=== PATIENT | male | born 1960 | race African-American/Black ===

== ENCOUNTER 2022-02-18 19:48 | Inpatient (IN) | payer SELFPAY ==
[2022-02-18 20:16] LABS: #Eosinphils 0.3 thou/uL (0.0-0.7); #Lymphocytes 3.4 thou/uL (1.20-3.40); #Monocytes 0.7 thou/uL (0.11-0.59); #Neutrophils 5.5 thou/uL (1.40-6.50); %Basophils 0.5 % (0.0-1.0); %Eosinophils 2.8 % (0.0-10.0); %Lymphocytes 34.1 % (21.0-51.0); %Monocytes 6.9 % (0.0-10.0); %Neutrophils 55.7 % (42.0-75.0); Hemoglobin 16.3 g/dL (14.0-18.0); Mean Corpuscular HGB CONC 32.6 g/dL (32.0-36.0); Mean Corpuscular Hemoglobin 28.7 pg (27.0-31.0); Mean Corpuscular Volume 88.1 fL (78.0-98.0); Mean Platelet Volume 7.9 fL (7.4-10.4); Platelet Count 260 thou/uL (130-400); RBC Distribution Width 14.4 % (11.5-14.5); White Blood Cell (WBC) Count 9.9 thou/uL (4.8-10.8)
[2022-02-18 20:36] LABS: ALT (SGPT) 10 U/L (8-55); AST (SGOT) 18 U/L (5-34); Albumin 4.1 g/dL (3.5-5.0); Alkaline Phosphatase 120 U/L (40-110); Anion Gap 15 mmol/L (10-20); BUN (Urea Nitrogen) 14 mg/dL (8.4-25.7); Bilirubin, Total 0.6 mg/dL (0.2-1.2); Calc. Creatinine Clearance 0 mL/min (70-130); Calcium 9.3 mg/dL (7.8-10.44); Carbon Dioxide 24 mmol/L (22-29); Chloride 104 mmol/L (98-107); Globulin 3.4 g/dL (2.4-3.5); Glucose 88 mg/dL (70-105); Potassium 4.1 mmol/L (3.5-5.1); Protein, Total 7.5 g/dL (6.0-8.3); Sodium 139 mmol/L (136-145)
[2022-02-18] MEDS ORDERED: Labetalol HCl 100 MG/20 ML VIAL ONE (20:37)
[2022-02-18] MEDS ORDERED: Aspirin Chewable 81 MG TAB ONE (21:11)
[2022-02-18] MEDS ORDERED: Acetaminophen 325 MG TAB PO PRN (21:40)
[2022-02-18] MEDS ORDERED: Calcium Carbonate 500 MG ChewTAB PO PRN (21:40)
[2022-02-18] MEDS ORDERED: Ondansetron ODT 4 MG TAB PO PRN (21:40)
[2022-02-18] MEDS ORDERED: Ondansetron PF 4 MG/2 ML Vial IVP PRN (21:40)
[2022-02-18 22:00] LABS: Amphetamine Not Detected (NotDetected); Barbiturates Screen Not Detected (NotDetected); Benzodiazepine Screen Not Detected (NotDetected); Cocaine Metabolite Screen Not Detected (NotDetected); Methadone Not Detected (NotDetected); Methamphetamine Not Detected (NotDetected); Opiate Screen Not Detected (NotDetected); Oxycodone Screen Not Detected (NotDetected); Phencyclidine (PCP) Not Detected (NotDetected); THC/Cannabinoid Screen Not Detected (NotDetected); Tricyclic Screen Not Detected (NotDetected)
[2022-02-18] MEDS ORDERED: hydrALAZINE 20 MG/ML VIAL ONE (22:02)
[2022-02-18 22:15] LABS: Hemoglobin A1c 5.8 % (4.0-6.0)
[2022-02-19 04:38] LABS: ALT (SGPT) 10 U/L (8-55); AST (SGOT) 13 U/L (5-34); Albumin 3.8 g/dL (3.5-5.0); Alkaline Phosphatase 103 U/L (40-110); Anion Gap 13 mmol/L (10-20); BUN (Urea Nitrogen) 11 mg/dL (8.4-25.7); Calc. Creatinine Clearance 101 mL/min (70-130); Carbon Dioxide 25 mmol/L (22-29); Chloride 102 mmol/L (98-107); Globulin 3.3 g/dL (2.4-3.5); Glucose 91 mg/dL (70-105); Protein, Total 7.1 g/dL (6.0-8.3); Sodium 137 mmol/L (136-145)
[2022-02-19 04:55] LABS: #Basophils 0.1 thou/uL (0.0-0.2); #Eosinphils 0.3 thou/uL (0.0-0.7); #Lymphocytes 3.1 thou/uL (1.20-3.40); #Monocytes 0.7 thou/uL (0.11-0.59); #Neutrophils 5.1 thou/uL (1.40-6.50); %Basophils 0.8 % (0.0-1.0); %Eosinophils 3.4 % (0.0-10.0); %Lymphocytes 33.4 % (21.0-51.0); %Monocytes 7.8 % (0.0-10.0); %Neutrophils 54.6 % (42.0-75.0); Hemoglobin 15.1 g/dL (14.0-18.0); Mean Corpuscular HGB CONC 33.2 g/dL (32.0-36.0); Mean Corpuscular Hemoglobin 29.2 pg (27.0-31.0); Mean Corpuscular Volume 87.9 fL (78.0-98.0); Mean Platelet Volume 7.9 fL (7.4-10.4); Platelet Count 261 thou/uL (130-400); RBC Distribution Width 14.4 % (11.5-14.5); Red Blood Cell (RBC) Count 5.17 mill/uL (4.70-6.10); White Blood Cell (WBC) Count 9.4 thou/uL (4.8-10.8)
[2022-02-19] MEDS ORDERED: Enoxaparin Sodium 40 MG/0.4 ML SYRINGE SC SCH (09:00)
[2022-02-19] MEDS: Aspirin 81 mg Enteric Coated Tablet PO SCH (09:12)
[2022-02-19] MEDS ORDERED: Amlodipine 5 MG TAB PO SCH (09:45)
[2022-02-19] MEDS ORDERED: Potassium Chloride 20 MEQ TAB PO SCH ×2 (10:15→16:00)
[2022-02-19] MEDS: hydrALAZINE 20 MG/ML VIAL SLOW IVP PRN ×2 (11:41→23:43)
[2022-02-19 12:08] LABS: SARS-CoV-2 PCR by NAA Not Detected (NotDetected)
[2022-02-19 16:03] LABS: Anion Gap 13 mmol/L (10-20); BUN (Urea Nitrogen) 13 mg/dL (8.4-25.7); Calc. Creatinine Clearance 103 mL/min (70-130); Calcium 9.4 mg/dL (7.8-10.44); Carbon Dioxide 25 mmol/L (22-29); Chloride 104 mmol/L (98-107); Glucose 115 mg/dL (70-105); Magnesium 2.3 mg/dL (1.6-2.6); Potassium 3.6 mmol/L (3.5-5.1); Sodium 138 mmol/L (136-145)
[2022-02-19 16:15] LABS: Phosphorus 1.6 mg/dL (2.3-4.7)
[2022-02-19] MEDS ORDERED: Sodium Phosphate 30 MMOL in Sodium Chloride 0.9% 250 ML 250 ML IVPB SCH (18:00)
[2022-02-19] MEDS: PHOS-NAK 1 PKT PACK PO SCH ×2 (18:32→22:10)
[2022-02-19] MEDS: Atorvastatin Calcium 40 MG TAB PO SCH (19:37)
[2022-02-20 04:49] LABS: Anion Gap 13 mmol/L (10-20); BUN (Urea Nitrogen) 11 mg/dL (8.4-25.7); Calc. Creatinine Clearance 102 mL/min (70-130); Calcium 9.1 mg/dL (7.8-10.44); Carbon Dioxide 24 mmol/L (22-29); Chloride 104 mmol/L (98-107); Glucose 105 mg/dL (70-105); Magnesium 2.1 mg/dL (1.6-2.6); Phosphorus 2.4 mg/dL (2.3-4.7); Potassium 3.4 mmol/L (3.5-5.1); Sodium 138 mmol/L (136-145)
[2022-02-20] MEDS ORDERED: Potassium Chloride 20 MEQ TAB PO SCH (07:15)
[2022-02-20] MEDS ORDERED: Enoxaparin Sodium 40 MG/0.4 ML SYRINGE SC SCH (09:00)
[2022-02-20] MEDS ORDERED: Amlodipine 5 MG TAB PO SCH (09:00)
[2022-02-20] MEDS: Amlodipine 10 MG TAB PO SCH (09:14)
[2022-02-20] MEDS: Aspirin 81 mg Enteric Coated Tablet PO SCH (09:15)
[2022-02-20] MEDS ORDERED: Carvedilol 3.125 MG TAB PO SCH ×2 (10:15→17:00)
[2022-02-20] MEDS: hydrALAZINE 20 MG/ML VIAL SLOW IVP PRN ×2 (10:19→17:07)
[2022-02-20] MEDS: Carvedilol 6.25 MG TAB PO SCH (17:06)
[2022-02-20] MEDS: Atorvastatin Calcium 40 MG TAB PO SCH (20:43)
[2022-02-20] MEDS ORDERED: Enoxaparin Sodium 120 MG/0.8 ML SYRINGE SC SCH (21:00)
[2022-02-21 07:30] LABS: #Eosinphils 0.3 thou/uL (0.0-0.7); #Lymphocytes 2.7 thou/uL (1.20-3.40); #Monocytes 0.7 thou/uL (0.11-0.59); #Neutrophils 6.1 thou/uL (1.40-6.50); %Basophils 0.1 % (0.0-1.0); %Eosinophils 2.9 % (0.0-10.0); %Lymphocytes 27.8 % (21.0-51.0); %Monocytes 6.9 % (0.0-10.0); %Neutrophils 62.4 % (42.0-75.0); Hemoglobin 16.5 g/dL (14.0-18.0); Mean Corpuscular HGB CONC 32.8 g/dL (32.0-36.0); Mean Corpuscular Hemoglobin 28.5 pg (27.0-31.0); Mean Corpuscular Volume 86.7 fL (78.0-98.0); Mean Platelet Volume 7.5 fL (7.4-10.4); Platelet Count 281 thou/uL (130-400); RBC Distribution Width 14.6 % (11.5-14.5); Red Blood Cell (RBC) Count 5.79 mill/uL (4.70-6.10); White Blood Cell (WBC) Count 9.8 thou/uL (4.8-10.8)
[2022-02-21 07:54] LABS: Anion Gap 12 mmol/L (10-20); BUN (Urea Nitrogen) 17 mg/dL (8.4-25.7); Calc. Creatinine Clearance 89 mL/min (70-130); Calcium 9.6 mg/dL (7.8-10.44); Carbon Dioxide 25 mmol/L (22-29); Chloride 105 mmol/L (98-107); Glucose 97 mg/dL (70-105); Potassium 3.8 mmol/L (3.5-5.1); Sodium 138 mmol/L (136-145)
[2022-02-21] MEDS: Amlodipine 10 MG TAB PO SCH (07:57)
[2022-02-21] MEDS: Aspirin 81 mg Enteric Coated Tablet PO SCH (07:57)
[2022-02-21] MEDS: Carvedilol 6.25 MG TAB PO SCH ×2 (07:57→16:20)
[2022-02-21] MEDS ORDERED: Enoxaparin Sodium 100 MG/ML SYRINGE SC SCH (09:00)
[2022-02-21] MEDS ORDERED: Enoxaparin Sodium 120 MG/0.8 ML SYRINGE SC SCH (09:00)
[2022-02-21] MEDS ORDERED: Carvedilol 6.25 MG TAB PO SCH (12:45)
[2022-02-21] MEDS ORDERED: Lisinopril 10 MG TAB PO SCH (12:45)
[2022-02-21] MEDS: Apixaban 5 MG TAB PO SCH (21:32)
[2022-02-21] MEDS: Atorvastatin Calcium 40 MG TAB PO SCH (21:32)
[2022-02-21] MEDS: hydrALAZINE 20 MG/ML VIAL SLOW IVP PRN (23:57)
[2022-02-22 05:52] LABS: Anion Gap 13 mmol/L (10-20); BUN (Urea Nitrogen) 22 mg/dL (8.4-25.7); Calc. Creatinine Clearance 94 mL/min (70-130); Calcium 9.5 mg/dL (7.8-10.44); Carbon Dioxide 23 mmol/L (22-29); Chloride 106 mmol/L (98-107); Glucose 97 mg/dL (70-105); Potassium 3.8 mmol/L (3.5-5.1); Sodium 138 mmol/L (136-145)
[2022-02-22] MEDS: Carvedilol 6.25 MG TAB PO SCH ×2 (08:02→15:54)
[2022-02-22] MEDS: hydrALAZINE 20 MG/ML VIAL SLOW IVP PRN ×2 (08:02→21:26)
[2022-02-22] MEDS: Apixaban 5 MG TAB PO SCH ×2 (08:02→21:26)
[2022-02-22] MEDS: Aspirin 81 mg Enteric Coated Tablet PO SCH (08:02)
[2022-02-22] MEDS ORDERED: Lisinopril 10 MG TAB PO SCH ×2 (08:45→09:00)
[2022-02-22] MEDS ORDERED: Carvedilol 6.25 MG TAB PO SCH (10:45)
[2022-02-22] MEDS: Atorvastatin Calcium 40 MG TAB PO SCH (21:26)
[2022-02-23 04:35] LABS: Anion Gap 13 mmol/L (10-20); BUN (Urea Nitrogen) 22 mg/dL (8.4-25.7); Calc. Creatinine Clearance 99 mL/min (70-130); Calcium 9.4 mg/dL (7.8-10.44); Carbon Dioxide 23 mmol/L (22-29); Chloride 105 mmol/L (98-107); Glucose 96 mg/dL (70-105); Potassium 3.6 mmol/L (3.5-5.1); Sodium 137 mmol/L (136-145)
[2022-02-23] MEDS ORDERED: Lisinopril 20 MG TAB PO SCH (09:00)
[2022-02-23] MEDS: Aspirin 81 mg Enteric Coated Tablet PO SCH (09:03)
[2022-02-23] MEDS: Apixaban 5 MG TAB PO SCH ×2 (09:03→21:26)
[2022-02-23] MEDS: Carvedilol 6.25 MG TAB PO SCH (09:03)
[2022-02-23] MEDS ORDERED: Carvedilol 6.25 MG TAB PO SCH (12:15)
[2022-02-23] MEDS: hydrALAZINE 20 MG/ML VIAL SLOW IVP PRN ×2 (16:18→21:26)
[2022-02-23] MEDS: Carvedilol 25 MG TAB PO SCH (17:04)
[2022-02-23] MEDS: Atorvastatin Calcium 40 MG TAB PO SCH (21:26)
[2022-02-23] MEDS: Lisinopril 20 MG TAB PO SCH (21:26)
[2022-02-24] MEDS ORDERED: hydrALAZINE 20 MG/ML VIAL SLOW IVP PRN (01:19)
[2022-02-24 05:39] LABS: Anion Gap 13 mmol/L (10-20); BUN (Urea Nitrogen) 23 mg/dL (8.4-25.7); Calc. Creatinine Clearance 85 mL/min (70-130); Calcium 9.5 mg/dL (7.8-10.44); Carbon Dioxide 22 mmol/L (22-29); Chloride 107 mmol/L (98-107); Glucose 99 mg/dL (70-105); Potassium 3.7 mmol/L (3.5-5.1); Sodium 138 mmol/L (136-145)
[2022-02-24] MEDS: Lisinopril 20 MG TAB PO SCH ×2 (08:01→21:22)
[2022-02-24] MEDS: Apixaban 5 MG TAB PO SCH ×2 (08:01→21:22)
[2022-02-24] MEDS: Aspirin 81 mg Enteric Coated Tablet PO SCH (08:01)
[2022-02-24] MEDS: Carvedilol 25 MG TAB PO SCH ×2 (08:01→17:17)
[2022-02-24] MEDS ORDERED: hydrALAZINE 25 MG TAB PO SCH (10:45)
[2022-02-24] MEDS: hydrALAZINE 25 MG TAB PO SCH ×2 (14:58→21:22)
[2022-02-24] MEDS: Atorvastatin Calcium 40 MG TAB PO SCH (21:21)
[2022-02-25 05:08] LABS: Anion Gap 14 mmol/L (10-20); BUN (Urea Nitrogen) 22 mg/dL (8.4-25.7); Calc. Creatinine Clearance 84 mL/min (70-130); Calcium 9.2 mg/dL (7.8-10.44); Carbon Dioxide 21 mmol/L (22-29); Chloride 107 mmol/L (98-107); Glucose 95 mg/dL (70-105); Potassium 3.7 mmol/L (3.5-5.1); Sodium 138 mmol/L (136-145)
[2022-02-25] MEDS: hydrALAZINE 25 MG TAB PO SCH ×3 (08:41→22:22)
[2022-02-25] MEDS: Aspirin 81 mg Enteric Coated Tablet PO SCH (08:41)
[2022-02-25] MEDS: Apixaban 5 MG TAB PO SCH ×2 (08:41→22:22)
[2022-02-25] MEDS: Carvedilol 25 MG TAB PO SCH ×2 (08:41→17:30)
[2022-02-25] MEDS: Lisinopril 20 MG TAB PO SCH ×2 (08:41→22:22)
[2022-02-25] MEDS ORDERED: hydrALAZINE 25 MG TAB PO SCH (15:00)
[2022-02-25 18:23] LABS: SARS-CoV-2 PCR by NAA Not Detected (NotDetected)
[2022-02-25] MEDS: Atorvastatin Calcium 40 MG TAB PO SCH (22:21)
[2022-02-26] MEDS: Apixaban 5 MG TAB PO SCH ×2 (08:22→20:55)
[2022-02-26] MEDS: Aspirin 81 mg Enteric Coated Tablet PO SCH (08:22)
[2022-02-26] MEDS: Carvedilol 25 MG TAB PO SCH ×2 (08:22→16:12)
[2022-02-26] MEDS: hydrALAZINE 25 MG TAB PO SCH ×3 (08:22→20:55)
[2022-02-26] MEDS: Lisinopril 20 MG TAB PO SCH ×2 (08:22→20:55)
[2022-02-26 14:32] VITALS: BMI 34.0
[2022-02-26] MEDS: Atorvastatin Calcium 40 MG TAB PO SCH (20:55)
[2022-02-27 08:01] VITALS: BP 166/71; TEMP 97.7
[2022-02-27] MEDS: hydrALAZINE 25 MG TAB PO SCH (08:06)
[2022-02-27] MEDS: Lisinopril 20 MG TAB PO SCH (08:07)
[2022-02-27] MEDS: Aspirin 81 mg Enteric Coated Tablet PO SCH (08:07)
[2022-02-27] MEDS: Carvedilol 25 MG TAB PO SCH (08:07)
[2022-02-27] MEDS: Apixaban 5 MG TAB PO SCH (08:07)
== END 2022-02-27 10:44 | DRG 65 ==
LOC: ERS 19:48 → 2NO 21:10 → NEURO 02-23 13:41
PROVIDERS: ADMIT Emergency Medicine; ATTEND Emergency Medicine
DX: I63.512 Cerebral infarction due to unspecified occlusion or stenosis of left middle cerebral artery (principal); G81.91 Hemiplegia, unspecified affecting right dominant side; I47.2 Ventricular tachycardia; I48.92 Unspecified atrial flutter; Z20.822 Contact with and (suspected) exposure to COVID-19; R29.703 NIHSS score 3; I10 Essential (primary) hypertension; I16.0 Hypertensive urgency; F17.210 Nicotine dependence, cigarettes, uncomplicated; G93.89 Other specified disorders of brain; Z82.49 Family history of ischemic heart disease and other diseases of the circulatory system; E78.00 Pure hypercholesterolemia, unspecified; I65.03 Occlusion and stenosis of bilateral vertebral arteries
CPT/HCPCS: 36415; 36416; 70450; 70496; 70498; 70551; 78452; 80048; 80053; 80061; 80306; 83036; 83735; 84100; 84443; 84484; 85025; 93005; 93010; 93017; 93306; 95712; 95819; 95957; 96374; 96375; A9500; J0153; J0360; J1650; U0003; U0005

== ENCOUNTER 2023-10-30 01:56 | Inpatient (IN) | payer OTHER ==
[2023-10-30] MEDS ORDERED: Cefepime 1 GM VIAL ONE (02:34)
[2023-10-30] MEDS ORDERED: Sodium Chloride 0.9% 100 ML ONE (02:35)
[2023-10-30 02:54] LABS: Bacteria/HPF 2+ HPF (None Seen); Bilirubin Negative (Negative); Blood, Urine 1+ (Negative); CAUTI Indications for Culture Alt mental st,lethar; Clarity Clear (Clear); Glucose, Urine (Dipstick) Normal (Negative); Ketone, Urine Trace mg/dL (Negative); Leukocyte 250 Leu/uL (Negative); Nitrite Negative (Negative); Protein, Urine (Dipstick) 20 mg/dL (Neg-Trace); RBC/HPF 21-50 HPF (0-3); Specific Gravity, Urine 1.016 (1.002-1.036); Urobilinogen Normal mg/dL (Less than 2); WBC/HPF 21-50 HPF (0-3); pH, Urine 5.5 (5.0-9.0)
[2023-10-30 03:00] LABS: Urine Culture Reflex Yes Yes
[2023-10-30 03:01] LABS: #Eosinphils 0.2 thou/uL (0.0-0.7); #Monocytes 1.5 thou/uL (0.11-0.59); %Basophils 0.1 % (0.0-1.0); %Eosinophils 0.8 % (0.0-10.0); %Lymphocytes 6.2 % (21.0-51.0); %Monocytes 6.6 % (0.0-10.0); %Neutrophils 85.6 % (42.0-75.0); Hematocrit 38.8 % (42.0-52.0); Mean Corpuscular HGB CONC 33.5 g/dL (32.0-36.0); Mean Corpuscular Hemoglobin 27.6 pg (27.0-31.0); Mean Corpuscular Volume 82.4 fl (78.0-98.0); Platelet Count 296 10x3/uL (130-400); RBC Distribution Width 15.4 % (11.5-14.5); Red Blood Cell (RBC) Count 4.71 mill/uL (4.70-6.10); White Blood Cell (WBC) Count 23.4 10x3/uL (4.8-10.8)
[2023-10-30] MEDS ORDERED: Vancomycin 1 GM/200 ML (FROZEN) BAG ONE (03:16)
[2023-10-30 03:29] LABS: ALT (SGPT) 13 U/L (8-55); AST (SGOT) 16 U/L (5-34); Albumin 3.6 g/dL (3.4-4.8); Alkaline Phosphatase 113 U/L (40-110); Anion Gap 16 mmol/L (10-20); BUN (Urea Nitrogen) 16 mg/dL (8.4-25.7); Bilirubin, Total 1.6 mg/dL (0.2-1.2); Calc. Creatinine Clearance 0 mL/min (70-130); Calcium 8.8 mg/dL (7.8-10.44); Carbon Dioxide 21 mmol/L (23-31); Chloride 106 mmol/L (98-107); Estimated GFR 83; Globulin 3.6 g/dL (2.4-3.5); Glucose 101 mg/dL (80-115); Potassium 3.5 mmol/L (3.5-5.1); Protein, Total 7.2 g/dL (5.8-8.1); Sodium 139 mmol/L (136-145)
[2023-10-30] MEDS ORDERED: Acetaminophen 500 MG TAB ONE (06:31)
[2023-10-30] MEDS ORDERED: Ondansetron PF 4 MG/2 ML Vial IVP PRN (06:45)
[2023-10-30] MEDS ORDERED: Ondansetron ODT 4 MG TAB SL PRN (06:45)
[2023-10-30] MEDS ORDERED: Sodium Chloride 0.9% 1,000 ML IV SCH (07:45)
[2023-10-30 10:52] LABS: Hemoglobin A1c 5.6 % (4.0-6.0)
[2023-10-30] MEDS: cefTRIAXone\\ROCEPHIN 1 GM in Sodium Chloride 0.9% 100 ML IVPB SCH (11:34)
[2023-10-30 12:13] VITALS: BMI 29.2
[2023-10-31] MEDS: cefTRIAXone\\ROCEPHIN 1 GM in Sodium Chloride 0.9% 100 ML IVPB SCH (09:00)
[2023-10-31 09:02] LABS: #Basophils 0.1 thou/uL (0.0-0.2); #Eosinphils 0.5 thou/uL (0.0-0.7); #Monocytes 1.1 thou/uL (0.11-0.59); #Neutrophils 9.7 thou/uL (1.40-6.50); %Basophils 0.4 % (0.0-1.0); %Lymphocytes 13.5 % (21.0-51.0); %Monocytes 8.6 % (0.0-10.0); %Neutrophils 72.9 % (42.0-75.0); Hematocrit 34.8 % (42.0-52.0); Hemoglobin 11.3 g/dL (14.0-18.0); Mean Corpuscular HGB CONC 32.5 g/dL (32.0-36.0); Mean Corpuscular Hemoglobin 26.6 pg (27.0-31.0); Mean Corpuscular Volume 81.9 fl (78.0-98.0); Mean Platelet Volume 9.9 fL (7.4-10.4); Platelet Count 310 10x3/uL (130-400); RBC Distribution Width 15.3 % (11.5-14.5); Red Blood Cell (RBC) Count 4.25 mill/uL (4.70-6.10); White Blood Cell (WBC) Count 13.3 10x3/uL (4.8-10.8)
[2023-10-31 09:13] LABS: Anion Gap 12 mmol/L (10-20); BUN (Urea Nitrogen) 10 mg/dL (8.4-25.7); Calc. Creatinine Clearance 157 mL/min (70-130); Calcium 8.6 mg/dL (7.8-10.44); Carbon Dioxide 24 mmol/L (23-31); Chloride 106 mmol/L (98-107); Estimated GFR 107; Glucose 85 mg/dL (80-115); Potassium 3.3 mmol/L (3.5-5.1); Sodium 139 mmol/L (136-145)
[2023-10-31] MEDS ORDERED: Electrolyte Replacement Protocol 1 EACH FS SCH (10:00)
[2023-10-31] MEDS ORDERED: Electrolyte Replacement Protocol FS PRN (10:00)
[2023-10-31 10:02] LABS: SARS-CoV-2 NAA Rapid Test Not Detected (NotDetected)
[2023-10-31] MEDS ORDERED: Iopamidol-370 76% 500 ML MDV (1 ML CHARGE) ONE (11:53)
[2023-10-31] MEDS ORDERED: Potassium Chloride 20 MEQ TAB PO SCH (12:00)
[2023-10-31] MEDS ORDERED: Magnesium 2 GM/50 ML(in water) 2 GM in Premix 1 BAG IVPB SCH (12:00)
[2023-10-31] MEDS: Carvedilol 25 MG TAB PO SCH (17:09)
[2023-10-31] MEDS: Acetaminophen 325 MG TAB PO PRN (17:12)
[2023-10-31] MEDS: Lisinopril 20 MG TAB PO SCH (20:19)
[2023-10-31] MEDS: Atorvastatin Calcium 40 MG TAB PO SCH (20:22)
[2023-10-31] MEDS ORDERED: Apixaban 5 MG TAB PO SCH (21:00)
[2023-11-01] MEDS: Acetaminophen 325 MG TAB PO PRN ×2 (04:42→20:45)
[2023-11-01 07:36] LABS: #Eosinphils 0.1 thou/uL (0.0-0.7); #Monocytes 0.8 thou/uL (0.11-0.59); #Neutrophils 6.3 thou/uL (1.40-6.50); %Basophils 0.5 % (0.0-1.0); %Eosinophils 1.6 % (0.0-10.0); %Lymphocytes 14.2 % (21.0-51.0); %Monocytes 9.2 % (0.0-10.0); %Neutrophils 73.6 % (42.0-75.0); Hematocrit 35.3 % (42.0-52.0); Hemoglobin 11.7 g/dL (14.0-18.0); Mean Corpuscular HGB CONC 33.1 g/dL (32.0-36.0); Mean Corpuscular Volume 81.5 fl (78.0-98.0); Mean Platelet Volume 9.7 fL (7.4-10.4); Platelet Count 328 10x3/uL (130-400); Red Blood Cell (RBC) Count 4.33 mill/uL (4.70-6.10); White Blood Cell (WBC) Count 8.5 10x3/uL (4.8-10.8)
[2023-11-01 08:08] LABS: ALT (SGPT) 21 U/L (8-55); AST (SGOT) 26 U/L (5-34); Albumin 3.2 g/dL (3.4-4.8); Alkaline Phosphatase 100 U/L (40-110); Bilirubin, Direct 0.4 mg/dL (0.1-0.3); Protein, Total 6.7 g/dL (5.8-8.1)
[2023-11-01 08:09] LABS: Anion Gap 10 mmol/L (10-20); BUN (Urea Nitrogen) 9 mg/dL (8.4-25.7); Calc. Creatinine Clearance 109 mL/min (70-130); Calcium 8.8 mg/dL (7.8-10.44); Carbon Dioxide 27 mmol/L (23-31); Chloride 101 mmol/L (98-107); Estimated GFR 94; Glucose 87 mg/dL (80-115); Magnesium 2.3 mg/dL (1.6-2.6); Potassium 3.4 mmol/L (3.5-5.1); Sodium 135 mmol/L (136-145)
[2023-11-01] MEDS: cefTRIAXone\\ROCEPHIN 1 GM in Sodium Chloride 0.9% 100 ML IVPB SCH (09:13)
[2023-11-01] MEDS: Lisinopril 20 MG TAB PO SCH ×2 (09:13→20:44)
[2023-11-01] MEDS: Aspirin 81 mg Enteric Coated Tablet PO SCH (09:13)
[2023-11-01] MEDS: Carvedilol 25 MG TAB PO SCH ×2 (09:13→17:57)
[2023-11-01] MEDS ORDERED: Potassium Chloride 20 MEQ TAB PO SCH (14:45)
[2023-11-01] MEDS: Apixaban 5 MG TAB PO SCH (20:44)
[2023-11-01] MEDS: Atorvastatin Calcium 40 MG TAB PO SCH (20:45)
[2023-11-01 22:19] LABS: Potassium 3.7 mmol/L (3.5-5.1)
[2023-11-02 07:52] LABS: #Basophils 0.1 thou/uL (0.0-0.2); #Eosinphils 0.2 thou/uL (0.0-0.7); #Monocytes 0.8 thou/uL (0.11-0.59); #Neutrophils 4.3 thou/uL (1.40-6.50); %Basophils 0.7 % (0.0-1.0); %Eosinophils 2.6 % (0.0-10.0); %Monocytes 11.1 % (0.0-10.0); %Neutrophils 60.5 % (42.0-75.0); Hematocrit 38.3 % (42.0-52.0); Hemoglobin 12.4 g/dL (14.0-18.0); Mean Corpuscular HGB CONC 32.4 g/dL (32.0-36.0); Mean Corpuscular Hemoglobin 26.8 pg (27.0-31.0); Mean Corpuscular Volume 82.9 fl (78.0-98.0); Mean Platelet Volume 9.4 fL (7.4-10.4); Platelet Count 342 10x3/uL (130-400); RBC Distribution Width 15.1 % (11.5-14.5); Red Blood Cell (RBC) Count 4.62 mill/uL (4.70-6.10); White Blood Cell (WBC) Count 7.1 10x3/uL (4.8-10.8)
[2023-11-02 08:13] LABS: Anion Gap 13 mmol/L (10-20); BUN (Urea Nitrogen) 11 mg/dL (8.4-25.7); Calc. Creatinine Clearance 118 mL/min (70-130); Carbon Dioxide 24 mmol/L (23-31); Chloride 103 mmol/L (98-107); Estimated GFR 98; Glucose 83 mg/dL (80-115); Magnesium 2.4 mg/dL (1.6-2.6); Potassium 3.7 mmol/L (3.5-5.1); Sodium 136 mmol/L (136-145)
[2023-11-02] MEDS: Lisinopril 20 MG TAB PO SCH (08:36)
[2023-11-02] MEDS: Carvedilol 25 MG TAB PO SCH ×2 (08:36→17:17)
[2023-11-02] MEDS: Aspirin 81 mg Enteric Coated Tablet PO SCH (08:36)
[2023-11-02] MEDS: cefTRIAXone\\ROCEPHIN 1 GM in Sodium Chloride 0.9% 100 ML IVPB SCH (08:36)
[2023-11-02] MEDS: Apixaban 5 MG TAB PO SCH (08:36)
[2023-11-02] MEDS ORDERED: FLU VACC QS2023-24(6MOS UP)/PF 60 MCG/0.5 ML SYRINGE IM ONE (09:00)
[2023-11-02 17:16] VITALS: BP 158/80; TEMP 97.7
== END 2023-11-02 19:18 | DRG 872 ==
LOC: ERS 01:56 → SUATTDRO 01:56 → 2NO 06:00 → T4-B 12:59
PROVIDERS: ADMIT Internal Medicine; ATTEND Hospitalist
DX: A41.9 Sepsis, unspecified organism (principal); N39.0 Urinary tract infection, site not specified; I69.951 Hemiplegia and hemiparesis following unspecified cerebrovascular disease affecting right dominant side; I50.20 Unspecified systolic (congestive) heart failure; I69.920 Aphasia following unspecified cerebrovascular disease; E78.5 Hyperlipidemia, unspecified; K21.9 Gastro-esophageal reflux disease without esophagitis; Z79.01 Long term (current) use of anticoagulants; Z79.82 Long term (current) use of aspirin; Z79.899 Other long term (current) drug therapy; D72.829 Elevated white blood cell count, unspecified; I11.0 Hypertensive heart disease with heart failure; Z11.52 Encounter for screening for COVID-19
CPT/HCPCS: 0241U; 36415; 36416; 51701; 70450; 71045; 71260; 74177; 80048; 80053; 80076; 81001; 83036; 83605; 83735; 83880; 84443; 85025; 87040; 87077; 87086; 87186; 90471; 90686; 93005; 93010; 96361; 96365; 96375; G0008; J0692; J0696; J1650; J3370-JW; J3475; J3490; J7050; Q9967

== ENCOUNTER 2023-11-23 07:55 | Inpatient (IN) | payer OTHER ==
[2023-11-23 15:50] VITALS: BMI 25.4
[2023-11-23] MEDS ORDERED: Ondansetron ODT 4 MG TAB SL PRN (16:00)
[2023-11-23] MEDS ORDERED: Ondansetron PF 4 MG/2 ML Vial IVP PRN ×2 (16:00→17:20)
[2023-11-23] MEDS ORDERED: Acetaminophen 325 MG TAB PO PRN (17:20)
[2023-11-23] MEDS ORDERED: Ondansetron ODT 4 MG TAB PO PRN (17:20)
[2023-11-23 17:51] LABS: #Eosinphils 0.5 thou/uL (0.0-0.7); #Monocytes 0.8 thou/uL (0.11-0.59); #Neutrophils 6.8 thou/uL (1.40-6.50); %Basophils 0.2 % (0.0-1.0); %Eosinophils 4.1 % (0.0-10.0); %Lymphocytes 27.8 % (21.0-51.0); %Monocytes 7.2 % (0.0-10.0); %Neutrophils 60.1 % (42.0-75.0); Hematocrit 23.4 % (42.0-52.0); Hemoglobin 7.5 g/dL (14.0-18.0); Mean Corpuscular HGB CONC 32.1 g/dL (32.0-36.0); Mean Corpuscular Hemoglobin 29.2 pg (27.0-31.0); Mean Corpuscular Volume 91.1 fl (78.0-98.0); Mean Platelet Volume 9.6 fL (7.4-10.4); Platelet Count 265 10x3/uL (130-400); RBC Distribution Width 19.6 % (11.5-14.5); Red Blood Cell (RBC) Count 2.57 mill/uL (4.70-6.10); White Blood Cell (WBC) Count 11.3 10x3/uL (4.8-10.8)
[2023-11-23 18:18] LABS: ALT (SGPT) 12 U/L (8-55); AST (SGOT) 22 U/L (5-34); Albumin 3.2 g/dL (3.4-4.8); Alkaline Phosphatase 79 U/L (40-110); Anion Gap 9 mmol/L (10-20); BUN (Urea Nitrogen) 22 mg/dL (8.4-25.7); Bilirubin, Total 1.1 mg/dL (0.2-1.2); Calc. Creatinine Clearance 98 mL/min (70-130); Calcium 8.5 mg/dL (7.8-10.44); Carbon Dioxide 25 mmol/L (23-31); Chloride 110 mmol/L (98-107); Estimated GFR 92; Globulin 2.6 g/dL (2.4-3.5); Glucose 85 mg/dL (80-115); Magnesium 2.1 mg/dL (1.6-2.6); Phosphorus 3.3 mg/dL (2.3-4.7); Protein, Total 5.8 g/dL (5.8-8.1); Sodium 140 mmol/L (136-145)
[2023-11-23] MEDS: Atorvastatin Calcium 40 MG TAB PO SCH (21:18)
[2023-11-23] MEDS: Carvedilol 25 MG TAB PO SCH (21:18)
[2023-11-23] MEDS: Pantoprazole 40 MG VIAL IVP SCH (21:18)
[2023-11-24 05:24] LABS: Hematocrit 22.7 % (42.0-52.0); Hemoglobin 7.2 g/dL (14.0-18.0)
[2023-11-24] MEDS: Amlodipine 5 MG TAB PO SCH (08:17)
[2023-11-24] MEDS: Carvedilol 25 MG TAB PO SCH ×2 (08:17→20:42)
[2023-11-24] MEDS: Tamsulosin HCl 0.4 MG CAP PO SCH (08:17)
[2023-11-24] MEDS: Polyethylene Glycol 3350 17 GM Packet PO SCH (08:18)
[2023-11-24] MEDS: Pantoprazole 40 MG VIAL IVP SCH ×2 (08:18→20:42)
[2023-11-24 11:00] LABS: Iron 63 ug/dL (65-175); Iron Binding Capacity, Total 194 mcg/dL (261-462)
[2023-11-24] MEDS: GoLYTELY 4,000 ml Bottle PO SCH (20:38)
[2023-11-24] MEDS: Atorvastatin Calcium 40 MG TAB PO SCH (20:41)
[2023-11-25] MEDS: GoLYTELY 4,000 ml Bottle PO SCH (03:00)
[2023-11-25 07:04] LABS: #Eosinphils 0.4 thou/uL (0.0-0.7); #Monocytes 0.8 thou/uL (0.11-0.59); #Neutrophils 8.2 thou/uL (1.40-6.50); %Basophils 0.1 % (0.0-1.0); %Eosinophils 3.5 % (0.0-10.0); %Lymphocytes 14.4 % (21.0-51.0); %Monocytes 7.3 % (0.0-10.0); %Neutrophils 74.2 % (42.0-75.0); Hematocrit 25.6 % (42.0-52.0); Hemoglobin 8.1 g/dL (14.0-18.0); Mean Corpuscular HGB CONC 31.6 g/dL (32.0-36.0); Mean Corpuscular Hemoglobin 28.9 pg (27.0-31.0); Mean Corpuscular Volume 91.4 fl (78.0-98.0); Mean Platelet Volume 9.9 fL (7.4-10.4); Platelet Count 257 10x3/uL (130-400); RBC Distribution Width 19.3 % (11.5-14.5)
[2023-11-25 07:21] LABS: Anion Gap 13 mmol/L (10-20); BUN (Urea Nitrogen) 11 mg/dL (8.4-25.7); Calc. Creatinine Clearance 103 mL/min (70-130); Calcium 8.6 mg/dL (7.8-10.44); Carbon Dioxide 25 mmol/L (23-31); Chloride 106 mmol/L (98-107); Estimated GFR 97; Glucose 97 mg/dL (80-115); Potassium 3.6 mmol/L (3.5-5.1); Sodium 140 mmol/L (136-145)
[2023-11-25] MEDS: Polyethylene Glycol 3350 17 GM Packet PO SCH (07:32)
[2023-11-25] MEDS: Pantoprazole 40 MG VIAL IVP SCH (07:58)
[2023-11-25] MEDS ORDERED: Fleet Saline Enema 133 ML BOT FS SCH (08:00)
[2023-11-25] MEDS: Carvedilol 25 MG TAB PO SCH ×2 (08:09→20:46)
[2023-11-25] MEDS ORDERED: PROPOFOL 40 ML ONE (10:18)
[2023-11-25] MEDS ORDERED: Lidocaine 2% PF 5 ML VIAL ONE (10:18)
[2023-11-25] MEDS: Amlodipine 5 MG TAB PO SCH (13:33)
[2023-11-25] MEDS: Tamsulosin HCl 0.4 MG CAP PO SCH (13:35)
[2023-11-25] MEDS: Atorvastatin Calcium 40 MG TAB PO SCH (20:46)
[2023-11-26 04:59] LABS: #Eosinphils 0.5 thou/uL (0.0-0.7); #Monocytes 0.6 thou/uL (0.11-0.59); #Neutrophils 4.4 thou/uL (1.40-6.50); %Basophils 0.1 % (0.0-1.0); %Eosinophils 6.3 % (0.0-10.0); %Lymphocytes 28.8 % (21.0-51.0); %Monocytes 7.3 % (0.0-10.0); %Neutrophils 57.1 % (42.0-75.0); Hematocrit 20.4 % (42.0-52.0); Hemoglobin 6.4 g/dL (14.0-18.0); Mean Corpuscular HGB CONC 31.4 g/dL (32.0-36.0); Mean Corpuscular Hemoglobin 29.5 pg (27.0-31.0); Mean Platelet Volume 9.5 fL (7.4-10.4); Platelet Count 220 10x3/uL (130-400); Red Blood Cell (RBC) Count 2.17 mill/uL (4.70-6.10); White Blood Cell (WBC) Count 7.7 10x3/uL (4.8-10.8)
[2023-11-26 05:07] LABS: Anion Gap 9 mmol/L (10-20); BUN (Urea Nitrogen) 9 mg/dL (8.4-25.7); Calc. Creatinine Clearance 110 mL/min (70-130); Calcium 8.2 mg/dL (7.8-10.44); Carbon Dioxide 27 mmol/L (23-31); Chloride 108 mmol/L (98-107); Estimated GFR 99; Glucose 120 mg/dL (80-115); Potassium 3.3 mmol/L (3.5-5.1); Sodium 141 mmol/L (136-145)
[2023-11-26 07:30] VITALS: BP 121/81; TEMP 98
[2023-11-26] MEDS: Tamsulosin HCl 0.4 MG CAP PO SCH (08:36)
[2023-11-26] MEDS: Amlodipine 5 MG TAB PO SCH (08:36)
[2023-11-26] MEDS: Carvedilol 25 MG TAB PO SCH (08:36)
[2023-11-26] MEDS ORDERED: FLU VACC QS2023-24(6MOS UP)/PF 60 MCG/0.5 ML SYRINGE IM ONE (09:00)
[2023-11-26] MEDS: Polyethylene Glycol 3350 17 GM Packet PO SCH (10:26)
[2023-11-26] MEDS ORDERED: Magnesium Oxide 400 MG TAB PO SCH (11:07)
[2023-11-26] MEDS ORDERED: Potassium Chloride 20 MEQ TAB PO SCH (11:15)
[2023-11-27] MEDS ORDERED: Magnesium Oxide 400 MG TAB PO SCH (09:00)
== END 2023-11-26 10:00 | DRG 812 ==
LOC: 2NO 15:10 → INTOOBSV 15:10 → OBSVTOIN 11-25 08:42 → MSONC 11-25 12:17
PROVIDERS: ADMIT Internal Medicine; ATTEND Internal Medicine
PROC: 0DJ08ZZ Inspection of Upper Intestinal Tract, Via Natural or Artificial Opening Endoscopic (ICD-10-PCS; principal; 2023-11-25)
PROC: 0DJD8ZZ Inspection of Lower Intestinal Tract, Via Natural or Artificial Opening Endoscopic (ICD-10-PCS; 2023-11-25)
DX: D64.9 Anemia, unspecified (principal); I69.351 Hemiplegia and hemiparesis following cerebral infarction affecting right dominant side; R55 Syncope and collapse; K21.9 Gastro-esophageal reflux disease without esophagitis; I10 Essential (primary) hypertension; E78.5 Hyperlipidemia, unspecified; E87.6 Hypokalemia; I48.0 Paroxysmal atrial fibrillation; K57.30 Diverticulosis of large intestine without perforation or abscess without bleeding; E66.9 Obesity, unspecified; Z99.3 Dependence on wheelchair; Z79.82 Long term (current) use of aspirin; I69.320 Aphasia following cerebral infarction; Z79.899 Other long term (current) drug therapy; Z68.25 Body mass index [BMI] 25.0-25.9, adult; Z79.01 Long term (current) use of anticoagulants
CPT/HCPCS: 36415; 80048; 80053; 82274; 82607; 82728; 83540; 83550; 83735; 84100; 85014; 85018; 85025; 86850; 86900; 86901; 93306; C9113; J2001; J2704